=== PATIENT | male | born 1960 | race Caucasian/White ===

== ENCOUNTER 2021-11-12 01:07 | Day surgery (SDC) | payer OTHER, SELFPAY ==
[2021-10-28 09:05] VITALS: BMI 27.1
--- NOTE | 2021-11-11 12:45 | PM.HPGS ---
History of Present Illness History of Present Illness Consent: Risks, benefits, and alternatives have been discussed and questions answered. Patient agrees to proceed with procedure. Chief complaint: hx of colon polyps, neoplasm screening Narrative: Sanjeev Leary is a 61 year old male Referred for colon cancer screening. He has had polyps removed a 2 previous examinations. Review of Systems Review of Systems: All systems reviewed & are unremarkable except as noted in HPI and below PMFSH Past Medical History Medical History Abnormal colonoscopy ( kaylah): 2017 sigmoid diverticulosis, polyp. repeat in 5 years. Benign colon polyp (~2011) Chronic anxiety Diverticulitis (~2011) Essential hypertension Mixed hyperlipidemia Surgical History Surgical History H/O colonoscopy (~2011) 2017 polyp/repeat in 5 years H/O vasectomy (~1994) Family History Family History Father Diabetes mellitus Family history of cardiovascular disease Mother Diabetes mellitus Hypertension Social History Social History Smoking packs per day: 1.5 Smoking cigarettes per day: 30.0 Years smoked: 25 Smoking pack-years: 37.50 Smoking status: Former smoker Tobacco type: cigarettes Smoking end date: 07/10/12 Alcohol intake: current Alcohol use details: 5-6 beers every night Substance use: never Substance use type: does not use Living arrangements: with family Spiritual care concerns: No Meds Home Medications and Allergies Home Medications Medication Instructions Recorded Confirmed Type aspirin 81 mg chewable tablet 81 mg PO DAILY 10/08/19 11/12/21 History cholecalciferol (vitamin D3) 25 25 mcg PO DAILY 10/08/19 11/12/21 History mcg (1,000 unit) tablet lisinopril 10 mg tablet See Rx Instructions .ROUTE 12/25/20 11/12/21 Rx .COMPLEX #90 tablet sertraline 50 mg tablet See Rx Instructions .ROUTE 08/05/21 11/12/21 Rx .COMPLEX #90 tablet atorvastatin 10 mg tablet See Rx Instructions .ROUTE 10/11/21 11/12/21 Rx .COMPLEX #90 tablet Allergies Allergy/AdvReac Type Severity Reaction Status Date / Time No Known Allergies Allergy Verified 11/12/21 10:26 Exam Resp: Auscultation: clear to auscultation bilaterally Cardio: Rate: regular rate Rhythm: regular rhythm GI: GI Palp: Yes Soft to palpation and No Tenderness to palpation present (GI) Assessment and Plan Assessment and plan (1) Colon cancer screening: Code(s): Z12.11 - Encounter for screening for malignant neoplasm of colon Status: Acute Assessment and Plan: Colonoscopy with possible biopsy or polypectomy or cautery or injection of substances.
[2021-11-12 10:28] VITALS: BP 134/78; PULSE 70; RESP 22; TEMP 36.4; O2SAT 98
[2021-11-12] MEDS: LACTATED RINGERS 1,000 ML 150 ML IV CONT (10:34)
--- NOTE | 2021-11-12 11:09 | WPDANESEPPF ---
Anes - Initial Pre Proc Eval Procedure: Operation Date: 11/12/21 11:15 Proposed Procedures p Screening Colonoscopy - Sharif Adrian MD Date/Time: 11/12/21 11:09 Surgeon: Sharif Adrian MD Pre Op Diagnosis: hx of colon polyps, neoplasm screening Patient Data Age: 61 Gender: M Height: 1.78 m Weight: 84.1 kg Last Vital Signs Temp 36.4 C L 11/12/21 10:28 Pulse 70 11/12/21 10:28 Resp 22 H 11/12/21 10:28 BP 134/78 11/12/21 10:28 Pulse Ox 98 11/12/21 10:28 Allergies Allergy/AdvReac Type Severity Reaction Status Date / Time No Known Allergies Allergy Verified 11/12/21 10:26 Home Medications Medication Instructions Recorded Confirmed Type aspirin 81 mg chewable tablet 81 mg PO DAILY 10/08/19 11/12/21 History cholecalciferol (vitamin D3) 25 25 mcg PO DAILY 10/08/19 11/12/21 History mcg (1,000 unit) tablet lisinopril 10 mg tablet See Rx Instructions .ROUTE 12/25/20 11/12/21 Rx .COMPLEX #90 tablet sertraline 50 mg tablet See Rx Instructions .ROUTE 08/05/21 11/12/21 Rx .COMPLEX #90 tablet atorvastatin 10 mg tablet See Rx Instructions .ROUTE 10/11/21 11/12/21 Rx .COMPLEX #90 tablet Patient hx anesthesia problems: none Family hx anesthesia problems: none Results Review: All pre-operative results and documents have been reviewed as part of the pre-operative evaluation. [facility] Past Medical History Medical History Abnormal colonoscopy ( adrian): 2017 sigmoid diverticulosis, polyp. repeat in 5 years. Benign colon polyp (~2011) Chronic anxiety Diverticulitis (~2011) Essential hypertension Mixed hyperlipidemia Surgical History Surgical History H/O colonoscopy (~2011) 2017 polyp/repeat in 5 years H/O vasectomy (~1994) Family History Family History Father Diabetes mellitus Family history of cardiovascular disease Mother Diabetes mellitus Hypertension Social History Social History Smoking packs per day: 1.5 Smoking cigarettes per day: 30.0 Years smoked: 25 Smoking pack-years: 37.50 Smoking status: Former smoker Tobacco type: cigarettes Smoking end date: 07/10/12 Alcohol intake: current Alcohol use details: 5-6 beers every night Substance use: never Substance use type: does not use Living arrangements: with family Spiritual care concerns: No Anes - Eval Final PreProcedure Day of Procedure 11/12/21 11:09 Patient weight: overweight Heart: regular rate and rhythm Lungs: decreased breath sounds Airway: Mallampati scale class II Neurological: alert and oriented Last oral intake: >/= 8 hours ASA classification: III Emergent: no Anesthetic plan: proceed Anesthesia type and monitoring: general GIVS and standard monitoring Results Review: All pre-operative results and documents have been reviewed as part of the pre-operative evaluation. Informed Consent: The patient's anesthetic plan and its attendant risks and benefits were discussed with the patient/family/POA. Questions were solicited and answers provided to the satisfaction of the patient/family/POA.
[2021-11-12] MEDS: SIMETHICONE ORAL SUSPENSION 20 MG/0.3 ML 30 ML BOTTLE 0.6 ML IRRIGATION (11:30)
[2021-11-12 11:38] VITALS: BP 100/66; PULSE 63; RESP 30; O2SAT 96
--- NOTE | 2021-11-12 11:38 | SUR.OPER ---
2 rectal polyps cold snared, only one retrieved and sent for bx.
[2021-11-12 11:48] VITALS: BP 127/79; PULSE 62; RESP 22; O2SAT 99
[2021-11-12 12:02] VITALS: BP 146/75; PULSE 62; RESP 15; O2SAT 99
== END 2021-11-12 12:10 | disposition home or self-care (01) ==
PROVIDERS: PCP Family Medicine; Visit Provider Internal Medicine Gastroenterology
PROC: 0DJD8ZZ Inspection of Lower Intestinal Tract, Via Natural or Artificial Opening Endoscopic (ICD-10-PCS; CPT 45378; principal; 2021-11-12 11:15)
DX: Z12.11 Encounter for screening for malignant neoplasm of colon (principal); K62.1 Rectal polyp; K57.30 Diverticulosis of large intestine without perforation or abscess without bleeding; I10 Essential (primary) hypertension; E78.2 Mixed hyperlipidemia; Z86.010 Personal history of colon polyps; F41.9 Anxiety disorder, unspecified; Z87.891 Personal history of nicotine dependence
CPT/HCPCS: 45385; 88305; J2704; J7120

== ENCOUNTER → 2022-12-10 11:20 | Outpatient (CLI) | payer OTHER, SELFPAY ==
--- NOTE | ~2022-12-10 | MR_ITS ---
MRI of the left shoulder Technique: Axial proton-density fat-sat images, coronal proton density fat-sat and T2 fat-sat images, and sagittal T1-weighted and T2 fat-sat images were acquired. Clinical History: Pain Findings: There is mild to moderate degenerative change at the AC joint, with small subacromial spur present. Coracoclavicular, coracohumeral, and coracoacromial ligaments are intact. There is a 1.5 x 0.9 cm area of high-grade articular surface partial thickness tearing at the distal infraspinatus tendon insertion involving the anterior to midportion of the tendon. Supraspinatus tend on is intact, without partial or full-thickness tear. Subscapularis tendon is intact with mild tendin osis. Tendon of long head of the biceps is intact. There is superior labral tear extending to the posterior superior portion. Inferior glenohumeral ligament is intact. There is mild degenerative change of the glenohumeral joint , with moderate diffuse chondral malacia and small inferomedial humeral head spur. No fluid distentio n of the subacromial/subdeltoid bursa. No muscle atrophy or edema. Impression: 1.5 x 0.9 cm high-grade articular surface partial tear at the distal, anterior infraspinatus tendon i nsertion. Superior labral tear extending to the posterior superior portion. Mild to moderate degenerative change of the glenohumeral joint. Reviewed, dictated and finalized at [facility]. Impression: 1.5 x 0.9 cm high-grade articular surface partial tear at the distal, anterior infraspinatus tendon insertion. Superior labral tear extending to the posterior superior portion. Mild to moderate degenerative change of the glenohumeral joint.
== END ==
PROVIDERS: PCP Orthopaedic Surgery; Visit Provider Orthopaedic Surgery
DX: M19.012 Primary osteoarthritis, left shoulder (principal)
CPT/HCPCS: 73221

== ENCOUNTER 2023-01-17 08:04 | Outpatient (CLI) | payer OTHER, SELFPAY ==
--- NOTE | 2023-01-17 08:00 | ECG_ITS ---
Measurements Intervals [facility] Rate: 63 P: 39 WI: 149 QRS: 13 QRSD: 87 T: 6 QT: 376 QTc: 387 Interpretive Statements SINUS RHYTHM NORMAL ECG NO PREVIOUS ECG AVAILABLE FOR COMPARISON Electronically Signed On 01-17-2023 8:45:25 CDT by Raul Jiménez D.O.
== END 2023-01-17 08:05 | disposition home or self-care (01) ==
LOC: ANHSURGERY 08:07
PROVIDERS: PCP Family Medicine; Visit Provider Orthopaedic Surgery
DX: Z01.818 Encounter for other preprocedural examination (principal); I10 Essential (primary) hypertension
CPT/HCPCS: 93005

== ENCOUNTER 2023-01-23 01:45 | Day surgery (SDC) | payer OTHER, SELFPAY ==
[2023-01-13 10:50] VITALS: BMI 26.5
--- NOTE | 2023-01-13 10:57 | PC.NURSE ---
Report to the Outpatient Waiting Room, entrance under the green pavilion located off [facility], at time 6:00 on date 01/23/23. Planned Procedure Time: 7:30. Time changes happen often and if your time is changed the preop area will call you the afternoon before. - You and your visitor will be asked to self-screen and do not enter if you have any COVID symptoms. - A mask is optional within the hospital at this time. Patients may have clear liquids (water, carbonated beverages, clear teas, apple juice) until 3 hours prior to surgery (4:30) with a maximum of 20 ounces. - No food from midnight until time of surgery Take the following medications with a SIP of water the morning of surgery: SERTRALINE DO NOT STOP ANY OF YOUR OTHER PRESCRIPTION MEDICATIONS PRIOR TO SURGERY ?EXCEPT THE FOLLOWING Medications to discontinue per physician: VITAMINS/SUPPLEMENTS Date to take last dose: 01/19/23 Please no make-up, nail bulgarian, hairspray, perfume, deodorant, or body powder the day of surgery. No jewelry (including any body piercings) or valuables the day of surgery, leave them at home. Please take a shower or bath the night before, or the morning of, surgery with an antibacterial soap. Wear comfortable, loose fitting clothing. - Jewelry must be removed prior to entering the operating room. Rings and piercings that are not removed may be cut off. - The hospital will not accept responsibility for valuables. - Please leave all valuables, including medications, at home the day of surgery. If you are going home after surgery, a licensed lift driver must drive you home. - NO public transportation without another adult if you receive anesthesia. - We recommend that an adult stay with you for 24 hours following discharge. - We also recommend that you do not drive, make important decision, drink alcoholic beverages, or take any drugs that were not prescribed by your health care provider for at least 24 hours after your discharge time. Follow any additional instructions given to you from your surgeon. If you or anyone in your household have experienced Covid symptoms in the past week, please notify your surgeon or the nurse liaison at the phone number below for possible testing. Telephone instructions given to PT - CHARITY [facility]ALL and asked if any additional questions and then verbalized understanding. Patient advised to call surgeon office or pre surgery nurse liaison [phone] if any additional questions.
[2023-01-23] VITALS (10 sets, daily range): BP systolic 124–162; BP diastolic 73–88; PULSE 60–74; RESP 14–16; TEMP 36.3–36.6; O2SAT 94–100
[2023-01-23] MEDS: KETOROLAC 15 MG/ML VIAL (*BKC) IV PUSH (07:00)
[2023-01-23] MEDS: ACETAMINOPHEN 500 MG TABLET 1000 MG PO (07:00)
[2023-01-23] MEDS: LACTATED RINGERS 1,000 ML 30 ML IV CONT (07:00)
--- NOTE | 2023-01-23 07:44 | WPDANESEPPF ---
Anes - Initial Pre Proc Eval Procedure: Operation Date: 01/23/23 07:30 Proposed Procedures p Left Rotator Cuff Repair and Distal Clavicle Excision - Nicholas Kramer MD Date/Time: 01/23/23 07:44 Surgeon: Nicholas Kramer MD Pre Op Diagnosis: L rotator cuff tear/ac arthritis Patient Data Age: 62 Gender: M Height: 1.78 m Weight: 85.2 kg Allergies Allergy/AdvReac Type Severity Reaction Status Date / Time No Known Allergies Allergy Verified 01/23/23 07:17 Home Medications Medication Instructions Recorded Confirmed Type aspirin 81 mg chewable tablet 81 mg PO DAILY 10/08/19 01/23/23 History cholecalciferol (vitamin D3) 25 25 mcg PO DAILY 10/08/19 01/23/23 History mcg (1,000 unit) tablet sertraline 50 mg tablet See Rx Instructions .Route 07/25/22 01/23/23 Rx .COMPLEX #90 tabs omega 6-hty-lmd-fish oil 300 1 cap PO DAILY 08/11/22 01/23/23 History mg-1,000 mg capsule,delayed release (Fish Oil) lisinopril 10 mg tablet See Rx Instructions .Route 12/28/22 01/23/23 Rx .COMPLEX #90 tabs atorvastatin 10 mg tablet See Rx Instructions .Route 12/29/22 01/23/23 Rx .COMPLEX #90 tabs Patient hx anesthesia problems: none Family hx anesthesia problems: none Results Review: All pre-operative results and documents have been reviewed as part of the pre-operative evaluation. [facility] Past Medical History Medical History Abnormal colonoscopy ( adrian): 2017 sigmoid diverticulosis, polyp. repeat in 5 years. Anxiety Arthritis Arthritis of left acromioclavicular joint Benign colon polyp (~2011) Chronic anxiety Diverticulitis (~2011) Essential hypertension Left rotator cuff tear Mixed hyperlipidemia Surgical History Surgical History H/O colonoscopy (~2011) 2017 polyp/repeat in 5 years H/O vasectomy (~1994) History of shoulder surgery right 2012 - Arthroscopic decompression with biceps release left 2015 - arthroscopic decompression Family History Family History Father Diabetes mellitus Family history of cardiovascular disease Hypertension Heart disease Mother Diabetes mellitus Hypertension Sibling Diabetes mellitus Depression Grandparent Heart disease Social History Social History Smoking packs per day: 1.25 Smoking cigarettes per day: 25.0 Years smoked: 28 Smoking pack-years: 35.00 Smoking status: Former smoker Tobacco type: cigarettes Smoking end date: 07/10/06 Alcohol intake: current Drinks per week: 40 Alcohol use details: 5-6 BEERS/NIGHT Substance use: current Substance use type: marijuana Lack of Transportation: No Lack of Food: Never True Current Housing: I Have Housing Concerned About Future Housing: No Difficulty Paying Gas/Electric Bills: No Difficulty Paying for Meds: No Currently Unemployed: No Education: High School Diploma/GED Difficulty w/ Childcare or Family Care: No Living arrangements: with family Occupation/Education: retired Spiritual care concerns: No Anes - Eval Final PreProcedure Day of Procedure 01/23/23 07:44 Patient weight: overweight Heart: regular rate and rhythm Lungs: decreased breath sounds Airway: Mallampati scale class II Neurological: alert and oriented Last oral intake: >/= 8 hours ASA classification: III Emergent: no Anesthetic plan: proceed Anesthesia type and monitoring: general ETT and standard monitoring Results Review: All pre-operative results and documents have been reviewed as part of the pre-operative evaluation. Informed Consent: The patient's anesthetic plan and its attendant risks and benefits were discussed with the patient/family/POA. Questions were solicited and answers provided to the satisfaction of the patient/family/POA.
--- NOTE | 2023-01-23 07:50 | WPDHPUPDATE1 ---
History and Physical Update Update Date/Time: 01/23/23 07:50 History and Physical has been reviewed, including an updated exam of the patient. There are NO changes in the patient's condition. Risks, benefits, and alternatives have been discussed and questions answered. Patient agrees to proceed with procedure.
--- NOTE | 2023-01-23 08:05 | WPDANESPNB ---
Anes - Peripheral Nerve Block Date/Time: 01/23/23 08:05 I have discussed with the patient/family/POA the placement of a peripheral nerve block for post-operative pain management, including associated risks, benefits, complications, and side effects. Alternative methods of post-operative analgesia were detailed. Questions were solicited and answers provided to the satisfaction of the patient/family/POA. Time-Out: A pre-procedural Time-Out was completed immediately before starting the procedure and confirmed: Patient Identification, Site, Procedure, Patient Position and the Availability of Requisite Equipment. Clinical Indications: Acute post-operative pain management requested by the operative surgeon. Nerve Block Insertion Note Anes-nerve block: interscalene left Patient position: other (sitting) Skin prep: chlorhexidine Needle: 22 gauge, stimulating, insulated echogenic needle. Needle length: 50 mm Technique: nerve stimulation lost at (mA) (0.3) and ultrasound Technique comment: mid2mg [id number] Injectate: bupivacaine 0.5% with epi 5 mcg/ml (30ml) Observations: tolerated well Complications: none Procedure start time:: 753 Procedure end time:: 800
[2023-01-23] MEDS: ceFAZolin 2 GM/D5W 50 ML 2 GM/50 ML BAG IVPB (08:07)
[2023-01-23] MEDS: BUPIVACAINE/EPINEPHRINE 0.25% 50 ML VIAL 10 ML INFILTRATE (08:44)
--- NOTE | 2023-01-23 09:35 | W.PM.PROC2 ---
Procedure Note - Detailed Date of Procedure 01/23/23 Pre-op Diagnosis Left rotator cuff tear; left ac arthritis Post-op Diagnosis Same Procedure Performed left shoulder rotator cuff repair with distal clavicle excision Surgeon Nicholas Kramer MD [employer] Anesthesia General and Regional Description of Procedure Patient was identified and proper site identified. In the preop holding area the anesthesia team performed a left upper extremity block. He was then taken to the operating room and transferred to the or table taking care to pad the torso and extremities. After general anesthetic induction and intubation, he was put in a semi beach chair position in the usual manner for a left shoulder procedure. His head was secured taking care to neither rotate nor extend the head and neck. The left upper extremity was prepped and draped free in usual sterile fashion. The subcutaneous tissue in the area of the incision was injected with 10 cc of 0.25% Marcaine and epinephrine solution. An oblique anterior incision was made extending from the AC joint distally in line with the fibers of the deltoid. Subcutaneous tissue was sharply dissected down to the deltoid fascia. The deltoid was dissected off the anterior portion of the acromion in the distal end of the clavicle. A 2 cm split was made at the junction between the anterior and middle thirds of the deltoid. Using the microsagittal saw the last 8 mm of clavicle removed. The saw was also used to perform the acromioplasty and then the undersurface of the acromion was rasped smooth. the area of the near complete tear was identified. The tear was completed in the tendon as freshened up. Tuberosity was prepared for the repair. Tendon was repaired back to the greater tuberosity with 2. Ethibond suture passed through a bony bridge. This gave a gonzalez repair which was stable as the shoulder was taken through range of motion. Remainder of the cuff was in good shape. The wound was irrigated with sterile NaCl solution. The deltoid was repaired back to the acromion with 2. Ethibond suture passed through bone and the remainder of the deltoid repair carried out with 2. Vicryl. Subcutaneous tissue was reapproximated with 2. Strata fix and then tissue adhesive used for the skin. Sterile dressing was applied. There were no known intraoperative complications, and perioperative antibiotics were administered. Estimated Blood Loss 15 Drains No Packing No Pathology None sent Complications No immediate complications Condition Stable Disposition PACU AM Billing Surgery - Charge Forward: Surgery Billing ([id number], [id number])
== END 2023-01-23 11:20 | disposition home or self-care (01) ==
PROVIDERS: PCP Family Medicine; Visit Provider Orthopaedic Surgery
PROC: (CPT 23420; principal; 2023-01-23 07:30)
DX: M75.102 Unspecified rotator cuff tear or rupture of left shoulder, not specified as traumatic (principal); M19.012 Primary osteoarthritis, left shoulder; I10 Essential (primary) hypertension; G89.18 Other acute postprocedural pain; Z87.891 Personal history of nicotine dependence; Z79.82 Long term (current) use of aspirin; F41.9 Anxiety disorder, unspecified; E78.2 Mixed hyperlipidemia
CPT/HCPCS: 23412; 23120; 64415; 93005; A4565; A9270; J0690; J1100; J1885; J2250; J2405; J2704; J2710; J3010; J7120

== ENCOUNTER 2023-03-06 12:30 | Outpatient (RCR) | payer OTHER, SELFPAY ==
--- NOTE | 2023-01-25 11:57 | OPREHPOC ---
Outpatient Therapy Plan of Care This is a Multidisciplinary Plan of Care that may contain components documented by all disciplines (PT, OT, and ST.) PT Problem 1 PT Problem #1 Knowledge Deficit PT Goal 1 Goal Pt to be IND with issued HEP Target Visit 16 PT Problem 2 PT Problem #2 Pain PT Goal 1 Goal Pt to report pain no greater than 3/10 in the last week Target Visit 16 PT Goal 2 Goal Pt to report 75% improvement in overall symptoms Target Visit 16 PT Problem 3 PT Problem #3 Impaired Range of Motion PT Goal 1 Goal Pt to improve active shoulder flexion and abduction to 120 deg ea when protocol allows. Target Visit 16 PT Goal 2 Goal Pt to demonstrate functional rotation within 2 spinal levels of uninvolved side when protocol allows Target Visit 16 PT Problem 4 PT Problem #4 Impaired Strength PT Goal 1 Goal Pt to improve L shoulder strength to 80% of uninvolved side. Target Visit 16 PT Goal 2 Goal Pt to be able to lift 5lb overhead when protocol allows Target Visit 16 PT Problem 5 PT Problem #5 Impaired Functional Mobil PT Goal 1 Goal Pt to report no functional limitations Target Visit 16
--- NOTE | 2023-01-25 11:57 | PTOPEVAL1 ---
Assessment and note entered by Saima Alcantara, PT, DPT Evaluation Information Assessment Status Evaluation Diagnosis L RTC repair with clavicle excision Onset 01/23/23 Subjective Information Pt states he slept night one without the sling because he felt like the nerve block was wearing off. Pt reports good compliance with his medication routine. He reports his pain has been the biggest complaint the last 2 days. Reported Pain Level Pain Score 2: Self Report Assessment PT Clinical Summary Sanjeev presents to therapy today following a L RTC repair on 01/23/23. Today he demonstrates passive flexion to 110 deg, passive abduction to 100 deg, and passive ext. rot. to 30 deg. Skilled physical therapy services are indicated to progress through surgical protocol, to improve strength and ROM as protocol allows, to manage pain, and to return to PLOF. Plan of Care Interventions Electrical Stimulation,Hot Pack/Cold Pack,Manual Therapy,Neuro Re-education,Patient/Caregiver Educati,Therapeutic Activities,Therapeutic Exercise PT Services Indicated Yes Treatment Frequency and 2x/wk for 8wks Duration These treatments will address the objective and functional deficits as defined above. The patient will be advanced safely and appropriately in order for the patient to progress towards his/her prior level of function. Additional exercises will be introduced and as well as a comprehensive home exercise program upon discharge, if needed, ?to ensure carryover of functional gains achieved in the clinic. This treatment plan has been reviewed and agreement upon by the patient.
--- NOTE | 2023-02-22 14:19 | PTOPPROGNS ---
Assessment and note entered by Saima Alcantara, PT, DPT Evaluation Information Assessment Status Progress Diagnosis L RTC repair with clavical excision Onset 01/23/23 Subjective Information Pt states overall he is doing great. He states his ROM and strength seems to be doing really well. He reports random pain but no concerns. Assessment PT Clinical Summary Sanjeev presents to therapy today for his progress report following 8 visits of skilled therapy following a L RTC repair on 01/23/23. Today he demonstrates excellent shoulder ROM, beyond his R shoulder. His L shoulder strength is grossly 4 to 4+/5 compared to 5/5 on his R. Continuation of skilled therapy services are indicated to further progress strength, stability, and functional mobility. Plan of Care Interventions Electrical Stimulation,Hot Pack/Cold Pack,Manual Therapy,Neuro Re-education,Patient/Caregiver Educati,Therapeutic Activities,Therapeutic Exercise PT Services Indicated Yes Treatment Frequency and 1x/wk for 4wks Duration These treatments will address the objective and functional deficits as defined above. The patient will be advanced safely and appropriately in order for the patient to progress towards his/her prior level of function. Additional exercises will be introduced and as well as a comprehensive home exercise program upon discharge, if needed, ?to ensure carryover of functional gains achieved in the clinic. This treatment plan has been reviewed and agreement upon by the patient.
--- NOTE | 2023-03-07 14:39 | PTOPDC ---
Assessment and note entered by Saima Alcantara, PT, DPT Evaluation Information Assessment Status Discharge - Pt Not Present Diagnosis L RTC repair with clavicle excision Onset 01/23/23 Subjective Information Pt called to state his doctor told him he can be done with therapy d/t doing well. He will be discharged at this time.
== END 2023-03-08 10:46 | disposition home or self-care (01) ==
LOC: ANHGOSHPT 12:30
PROVIDERS: PCP Family Medicine; Visit Provider Orthopaedic Surgery
DX: Z48.89 Encounter for other specified surgical aftercare (principal); Z98.890 Other specified postprocedural states
CPT/HCPCS: 97110; 97112; 97140; 97161; 97530

== ENCOUNTER 2024-05-24 09:07 | Outpatient (CLI) | payer MEDICARE, OTHER, SELFPAY ==
[2024-05-24 12:08] LABS: Alanine Aminotransferase 26 U/L (6-50); Albumin Level 4.2 g/dL (3.5-5.1); Alkaline Phosphatase 57 U/L (38-126); Anion Gap 6 mmol/L (4-12); Aspartate Amino Transferase 59 U/L (17-59); Bilirubin,Total 0.6 mg/dL (0.2-1.3); Blood Urea Nitrogen 12 mg/dL (9-20); Calcium 9.8 mg/dL (8.4-10.2); Carbon Dioxide 32 mmol/L (22-30); Chloride 102 mmol/L (98-107); Cholesterol 137 mg/dL (0-200); Estimated Glomerular Filt Rate > 60; Glucose 96 mg/dL (65-110); HDL Direct 50 mg/dL; Potassium 4.1 mmol/L (3.4-5.0); Sodium 140 mmol/L (137-145); Triglycerides 122 mg/dL (<150)
[2024-05-24 12:19] LABS: LDL Cholesterol Direct 50 mg/dL
[2024-05-24 12:37] LABS: Prostate Specific Antigen 0.6 ng/mL (< OR = 4.0)
== END 2024-05-24 09:08 | disposition home or self-care (01) ==
LOC: ANHGOSHLAB 09:10
PROVIDERS: PCP Family Medicine; Visit Provider Family Medicine
DX: Z12.5 Encounter for screening for malignant neoplasm of prostate (principal); R73.03 Prediabetes; I10 Essential (primary) hypertension
CPT/HCPCS: 36415; 80053; 80061; 83036; 84153; G0103

== ENCOUNTER 2024-05-27 00:23 | Day surgery (SDC) | payer MEDICARE, OTHER, SELFPAY ==
[2024-05-14 14:49] VITALS: BMI 26.7
[2024-05-27 06:29] VITALS: BP 126/64; PULSE 55; RESP 18; TEMP 36.1; O2SAT 97
[2024-05-27] MEDS: LACTATED RINGERS 1,000 ML 150 ML IV CONT (06:35)
--- NOTE | 2024-05-27 06:44 | P.PNAN_ITS ---
Anes - Initial Pre Proc Eval Procedure: Operation Date: 05/27/24 07:30 Proposed Procedures p Colonoscopy - Frank Toledo MD Date/Time: 05/27/24 06:44 Surgeon: Frank Toledo MD Pre Op Diagnosis: Melena Patient Data Age: 63 Gender: M Height: 1.78 m Weight: 83.4 kg Last Vital Signs Temp 36.1 C L 05/27/24 06:29 Pulse 55 L 05/27/24 06:29 Resp 18 05/27/24 06:29 BP 126/64 05/27/24 06:29 Pulse Ox 97 05/27/24 06:29 O2 Del Method Room Air 05/27/24 06:29 Allergies Allergy/AdvReac Type Severity Reaction Status Date / Time No Known Allergies Allergy Verified 05/27/24 06:26 Home Medications Medication Instructions Recorded Confirmed Type aspirin 81 mg chewable tablet 81 mg PO DAILY 10/08/19 05/21/24 History cholecalciferol (vitamin D3) 25 25 mcg PO DAILY 10/08/19 05/21/24 History mcg (1,000 unit) tablet omega 1-ltj-wjp-fish oil 300 1 cap PO DAILY 08/11/22 05/21/24 History mg-1,000 mg capsule,delayed release (Fish Oil) sertraline 50 mg tablet See Rx Instructions .Route 02/15/24 05/21/24 Rx .COMPLEX #90 tabs lisinopril 20 mg tablet See Rx Instructions PO DAILY #90 03/15/24 05/21/24 Rx tabs atorvastatin 10 mg tablet See Rx Instructions .Route 05/21/24 05/27/24 Rx .COMPLEX #90 tabs Patient hx anesthesia problems: none Family hx anesthesia problems: none Results Review: All pre-operative results and documents have been reviewed as part of the pre- operative evaluation. [facility] Past Medical History Medical History Abnormal colonoscopy ( kaylah): 2017 sigmoid diverticulosis, polyp. repeat in 5 years. Anxiety Arthritis Benign colon polyp (~2011) Chronic anxiety Diverticulitis (~2011) Essential hypertension Mixed hyperlipidemia Surgical History Surgical History Arthritis of left acromioclavicular joint Distal clavicle excision along with rotator cuff repair January 23, 2023 H/O colonoscopy (~2011) 2017 polyp/repeat in 5 years H/O vasectomy (~1994) History of shoulder surgery right 2012 - Arthroscopic decompression with biceps release left 2014 - arthroscopic decompression Left rotator cuff tear left rotator cuff repair with distal clavicle excision January 23, 2023 Family History Family History Father Diabetes mellitus Family history of cardiovascular disease Hypertension Heart disease Mother Diabetes mellitus Hypertension Sibling Diabetes mellitus Depression Grandparent Heart disease Social History Social History Social History: Caffeine-coffee Smoking packs per day: 1.25 Smoking cigarettes per day: 25.0 Years smoked: 28 Smoking pack-years: 35.00 Smoking status: Former smoker Tobacco type: cigarettes Smoking end date: 07/10/06 Alcohol intake: former Drinks per week: 40 Alcohol use details: quit drinking Apr 08 2024 Substance use: former Substance use type: marijuana Other substance usage details: occasionally Last use: every once in a while Do You Feel Safe in your Home?: Yes Lack of Transportation: No Lack of Food: Never True Current Housing: I Have Housing Concerned About Future Housing: No Difficulty Paying Gas/Electric Bills: No Difficulty Paying for Meds: No Currently Unemployed: No Education: High School Diploma/GED Difficulty w/ Childcare or Family Care: No Living arrangements: with family Occupation/Education: retired Spiritual care concerns: No Anes - Eval Final PreProcedure Day of Procedure 05/27/24 06:44 Patient weight: overweight Heart: regular rate and rhythm Lungs: clear to auscultation Airway: Mallampati scale class II Neurological: alert and oriented Last oral intake: >/= 8 hours ASA classification: III Emergent: no Anesthetic plan: proceed Anesthesia type and monitoring: general GIVS and standard monitoring Results Review: All pre-operative results and documents have been reviewed as part of the pre- operative evaluation. Informed Consent: The patient's anesthetic plan and its attendant risks and benefits were discussed with the patient/family/POA. Questions were solicited and answers provided to the satisfaction of the patient/family/POA.
--- NOTE | 2024-05-27 07:27 | P.HP_ITS ---
H&P: HPI History of Present Illness Date/Time: 05/27/24 07:27 Chief Complaint: History of colon polyps Narrative: The patient has a history of colonic polyps, the last colonoscopy was 6 years ago Review of Systems Review of Systems: All systems reviewed & are unremarkable except as noted in HPI and below PMFSH Past Medical History Medical History Abnormal colonoscopy ( adrian): 2017 sigmoid diverticulosis, polyp. repeat in 5 years. Anxiety Arthritis Benign colon polyp (~2011) Chronic anxiety Diverticulitis (~2011) Essential hypertension Mixed hyperlipidemia Surgical History Surgical History Arthritis of left acromioclavicular joint Distal clavicle excision along with rotator cuff repair January 23, 2023 H/O colonoscopy (~2011) 2017 polyp/repeat in 5 years H/O vasectomy (~1994) History of shoulder surgery right 2012 - Arthroscopic decompression with biceps release left 2014 - arthroscopic decompression Left rotator cuff tear left rotator cuff repair with distal clavicle excision January 23, 2023 Family History Family History Father Diabetes mellitus Family history of cardiovascular disease Hypertension Heart disease Mother Diabetes mellitus Hypertension Sibling Diabetes mellitus Depression Grandparent Heart disease Social History Social History Social History: Caffeine-coffee Smoking packs per day: 1.25 Smoking cigarettes per day: 25.0 Years smoked: 28 Smoking pack-years: 35.00 Smoking status: Former smoker Tobacco type: cigarettes Smoking end date: 07/10/06 Alcohol intake: former Drinks per week: 40 Alcohol use details: quit drinking Apr 08 2024 Substance use: former Substance use type: marijuana Other substance usage details: occasionally Last use: every once in a while Do You Feel Safe in your Home?: Yes Lack of Transportation: No Lack of Food: Never True Current Housing: I Have Housing Concerned About Future Housing: No Difficulty Paying Gas/Electric Bills: No Difficulty Paying for Meds: No Currently Unemployed: No Education: High School Diploma/GED Difficulty w/ Childcare or Family Care: No Living arrangements: with family Occupation/Education: retired Spiritual care concerns: No Meds Home Medications and Allergies Home Medications Medication Instructions Recorded Confirmed Type aspirin 81 mg chewable tablet 81 mg PO DAILY 10/08/19 05/21/24 History cholecalciferol (vitamin D3) 25 25 mcg PO DAILY 10/08/19 05/21/24 History mcg (1,000 unit) tablet omega 8-kmt-mme-fish oil 300 1 cap PO DAILY 08/11/22 05/21/24 History mg-1,000 mg capsule,delayed release (Fish Oil) sertraline 50 mg tablet See Rx Instructions .Route 02/15/24 05/21/24 Rx .COMPLEX #90 tabs lisinopril 20 mg tablet See Rx Instructions PO DAILY #90 03/15/24 05/21/24 Rx tabs atorvastatin 10 mg tablet See Rx Instructions .Route 05/21/24 05/27/24 Rx .COMPLEX #90 tabs Allergies Allergy/AdvReac Type Severity Reaction Status Date / Time No Known Allergies Allergy Verified 05/27/24 06:26 Vital Signs Vital Signs - 24 hr 05/27/24 06:29 Temperature 97 F L Pulse Rate 55 L Respiratory Rate 18 Blood Pressure 126/64 Pulse Oximetry 97 Oxygen Delivery Room Air Exam Const: General: cooperative and healthy appearing Resp: Effort & Inspection: normal respiratory effort and able to speak in complete sentences Auscultation: clear to auscultation bilaterally Cardio: Rate: regular rate Rhythm: regular rhythm GI: Inspection: normal to inspection GI Palp: No No hepatosplenomegaly present Auscultation: normal bowel sounds Rectal Exam: deferred Skin: General skin exam: normal color Psych: Appearance: grossly normal Mental Status: mental status grossly no rmal Assessment and Plan Assessment and plan (1) Personal history of colonic polyps: Code(s): Z86.010 - Personal history of colon polyps Status: Acute Assessment and Plan: The patient is deemed a good candidate for the procedure. Consent signed. Will proceed.
[2024-05-27] MEDS: SIMETHICONE ORAL SUSPENSION 20 MG/0.3 ML 30 ML BOTTLE 0.6 ML IRRIGATION (07:42)
[2024-05-27 07:48] VITALS: BP 106/65; PULSE 59; RESP 17; O2SAT 97
[2024-05-27 08:01] VITALS: BP 121/69; PULSE 55; RESP 16; O2SAT 100
[2024-05-27 08:07] VITALS: BP 116/81; PULSE 54; RESP 18; O2SAT 100
== END 2024-05-27 08:15 | disposition home or self-care (01) ==
PROVIDERS: PCP Family Medicine; Referring Provider Student in an Organized Health Care Education/Training Program; Visit Provider Internal Medicine Gastroenterology
PROC: 0DJD8ZZ Inspection of Lower Intestinal Tract, Via Natural or Artificial Opening Endoscopic (ICD-10-PCS; CPT 45378; principal; 2024-05-27 07:30)
DX: Z12.11 Encounter for screening for malignant neoplasm of colon (principal); K64.0 First degree hemorrhoids; K57.30 Diverticulosis of large intestine without perforation or abscess without bleeding; F41.9 Anxiety disorder, unspecified; E78.2 Mixed hyperlipidemia; I10 Essential (primary) hypertension; M19.90 Unspecified osteoarthritis, unspecified site; F12.90 Cannabis use, unspecified, uncomplicated; Z79.85 Long-term (current) use of injectable non-insulin antidiabetic drugs; Z98.890 Other specified postprocedural states; Z87.891 Personal history of nicotine dependence; Z86.0100 Personal history of colon polyps, unspecified; Z87.19 Personal history of other diseases of the digestive system; Z82.49 Family history of ischemic heart disease and other diseases of the circulatory system
CPT/HCPCS: G0105; J2704; J7120

== ENCOUNTER 2025-05-28 08:42 | Outpatient (CLI) | payer MEDICARE, OTHER, SELFPAY ==
[2025-05-28 16:06] LABS: Alanine Aminotransferase 21 U/L (6-50); Albumin Level 4.2 g/dL (3.5-5.1); Alkaline Phosphatase 51 U/L (38-126); Anion Gap 5 mmol/L (4-12); Aspartate Amino Transferase 40 U/L (17-59); Bilirubin,Total 0.6 mg/dL (0.2-1.3); Blood Urea Nitrogen 23 mg/dL (9-20); Calcium 9.5 mg/dL (8.4-10.2); Carbon Dioxide 30 mmol/L (22-30); Chloride 105 mmol/L (98-107); Cholesterol 140 mg/dL (0-200); Estimated Glomerular Filt Rate > 60; Glucose 83 mg/dL (65-110); HDL Direct 53 mg/dL; Potassium 5.2 mmol/L (3.4-5.0); Sodium 140 mmol/L (137-145); Total Protein 6.8 g/dL (6.3-8.2); Triglycerides 75 mg/dL (<150)
[2025-05-28 17:52] LABS: Prostate Specific Antigen 0.7 ng/mL (< OR = 4.0)
[2025-05-28 18:32] LABS: Hemoglobin A1C 5.1 % (<5.7)
== END 2025-05-28 08:43 | disposition home or self-care (01) ==
LOC: ANHGOSHLAB 08:43
PROVIDERS: PCP Family Medicine; Visit Provider Family Medicine
DX: E78.2 Mixed hyperlipidemia (principal); Z11.59 Encounter for screening for other viral diseases; R73.9 Hyperglycemia, unspecified; I10 Essential (primary) hypertension; Z79.899 Other long term (current) drug therapy
CPT/HCPCS: 36415; 80053; 80061; 82306; 83036; 84153; 86803; G0103